=== PATIENT | male | born 1975 | race Caucasian/White ===

== ENCOUNTER 2023-03-18 16:37 | Emergency (ER) | payer BC, SELFPAY ==
[2023-03-18] VITALS (54 sets, daily range): BP systolic 140–152; BP diastolic 84–108; PULSE 73–101; RESP 15–20; TEMP 37.1–37.6; O2SAT 91–97
--- NOTE | 2023-03-18 17:50 | ED.GENADUL_ITS ---
Discharge Plan Disposition Patient Disposition: Home Discharge Details Chief Complaint: GenMedical Clinical Impression: Dehydration, Viral illness, Hiatal hernia Primary Care Provider: Raghav Klein ED Provider: Brant Norwood Home Meds and New Rx's Prescriptions: No Action ibuprofen [Motrin IB] 200 MG tablet 200 mg PO Q6H PRN Patient Comments: PT STATES TAKING 800MG 1-2X DAILY.HE hydrocodone-acetaminophen 1 TAB tablet 1 ea PO Q4H PRN PRN (Reason: Pain) Qty: 15 0RF Discharge Instructions Instructions: Hiatal Hernia (ED), Dehydration (ED), Viral Syndrome (ED) Additional Instructions: Please follow-up closely with your primary care physician. Please return to the emergency department for any worsening symptoms Referrals: Lani Redding MD [ [facility] STAFF PHYSICIAN] - (Call surgery team for follow up regarding your hiatal hernia as needed) Medical Decision Making 48-year-old male no past medical history presents with 1 week of generalized fatigue, sore throat, noticed enanthem to tongue shallow-based ulcers, recent travel to [place] to a conference, no sick contacts that he is aware of, discomfort with swallowing with sensation radiating down into chest, no shortness of breath no peripheral edema, able to tolerate food no diarrhea or constipation. Relatively nontoxic however wildly tachycardic on arrival. Consider viral illness leading to pharyngitis must consider COVID versus influenza versus RSV versus mononucleosis versus strep pharyngitis must also consider viral versus bacterial pneumonia low suspicion for ACS esophageal rupture bowel obstruction or biliary pathology. Consider tachycardia related to viral illness and dehydration. Will administer fluids antiemetics GI cocktail, screening chest x-ray flu RSV COVID swab strep swab, Monospot. 21: 22 heart rate and clinical appearance greatly improved after fluids. Labs and imaging largely unremarkable. Incidental hiatal hernia on CT chest abdomen pelvis. Home care instructions and return precautions given. Consider likely resolving viral illness and dehydration HPI General Date/Time Provider Initiated Documentation: 03/18/23 16:52 . HPI Narrative: 48-year-old male no past medical history, presents with 1 week of fatigue, sore throat, painful sensation in chest when swallowing, also noticed some inflammation to tongue and throat, recent travel to [place] to a conference, no recent sick contacts. Related Data Home Medications Medication Instructions Recorded Confirmed hydrocodone 5 mg-acetaminophen 325 1 ea PO Q4H PRN PRN Pain #15 tabs 03/31/14 mg tablet ibuprofen 200 mg tablet (Motrin IB) 200 mg PO Q6H PRN 04/08/14 Previous Rx's Medication Instructions Recorded hydrocodone 5 mg-acetaminophen 325 1 ea PO Q4H PRN PRN Pain #15 tabs 12/14 mg tablet Allergies Allergy/AdvReac Type Severity Reaction Status Date / Time No Known Allergies Allergy Unverified 03/18/23 16:54 General Stated Complaint: GenMedical MARI: 3 Review of Systems Narrative: Review of Systems Constitutional: Fatigue Eyes: negative ENT: Sore throat Cardiovascular: negative Respiratory: negative Gastrointestinal: negative : negative Musculoskeletal: negative Skin: negative Neurologic: negative Psych: negative PFSH All Active Problems (Updated 03/18/23 @ 21:26 by Brant Norwood MD) Dehydration (Acute) Viral illness (Acute) Hiatal hernia (Chronic) Surgical History (Updated 06/05/18 @ 14:35 by [facility]) Repair of inguinal hernia 2012 Social History Smoking/Tobacco Use Status: Never Smoking risk assessment performed?: Yes Alcohol Intake: never Drug use: Never Substance use type: does not use Do you feel safe at home: Yes Do you feel safe in your relationship?: Yes Exam Narrative Exam Narrative: Physical Examination General: alert, awake, cooperative, resting comfortably, no acute distress HEENT: normocephalic, atraumatic; PERRL, EOM intact, conjunctiva normal; no nasal discharge; moist mucous membranes, erythematous tonsils bilaterally, midline uvula, tolerating secretions normal voice, enanthem of tongue shallow based ulcerations Neck: supple, trachea midline; full ROM Chest: normal to inspection Respiratory: normal respiratory effort, speaking in full sentences, clear to auscultation, no wheezing, rales or rhonchi Cardiac: Tachycardia, regular rhythm, S1S2 intact, no murmurs rubs or gallops GI: abdomen soft, non-tender, non-distended; no palpable mass or hepatosplenomegaly Skin: no lesions, rashes or trauma appreciated Neuro: AAOx3, normal speech, moving all extremities Extremities: No peripheral edema Psych: Appropriate mood and affect Course Vital Signs Vital signs: Vital Signs Temperature 37.1 C 03/18/23 16:48 Pulse 101 H 03/18/23 16:48 Respiratory Rate 20 03/18/23 16:48 Blood Pressure 152/108 H 03/18/23 16:48 Pulse Oximetry 95 03/18/23 16:48 Temperature 37.1 C 03/18/23 16:48 Temperature Source Oral 03/18/23 16:48 Pulse 101 H 03/18/23 16:48 Respiratory Rate 20 03/18/23 16:48 Blood Pressure 152/108 H 03/18/23 16:48 Blood Pressure Position Sitting 03/18/23 16:48 Pulse Oximetry 95 03/18/23 16:48 Oxygen Delivery Method Room Air 03/18/23 16:48 Oxygen Flow Rate 0 03/18/23 16:48 Pain Level 2 03/18/23 16:48 Lab/Test Results Lab/Test Results: 03/18/23 17:04 Tonsil - Not Specified Group A Streptococcus Culture - Pending
[2023-03-18 18:14] LABS: Abs Immature Grans 0.05 10^3/uL (0.0-0.06); Absolute Basophil Count 0.05 10^3/uL (0.0-0.2); Absolute Eosinophil Count 0.05 10^3/uL (0.0-0.7); Absolute Lymphocyte Count 2.12 10^3/uL (1.2-3.4); Absolute Monocyte Count 0.83 10^3/uL (0.1-0.8); Absolute Neutrophil Count 6.69 10^3/uL (1.2-6.7); Basophils % 0.5; Eosinophils % 0.5; HCT 45.9 % (40.0-50.0); Immature Grans % 0.5; Lymphocytes % 21.7; MCH 28.6 pg (27.0-33.0); MCHC 32.7 % (32.0-36.0); MCV 87 fL (80-95); MPV 8.7 fL (8.0-11.0); Monocytes % 8.5; Neutrophils % 68.3; Platelet Count 237 10^3/uL (130-400); RBC 5.25 10^6/uL (4.36-5.78); RDW-SD 39.2 fL; WBC 9.79 10^3/uL (4.4-10.8)
--- NOTE | 2023-03-18 18:15 | DI.RAD_ITS ---
Exam(s) XR CHEST 2V PA LATERAL EXAM: XR CHEST 2V PA LATERAL CLINICAL HISTORY: pain with swallowing, fatigue. TECHNIQUE: 2D digital imaging was performed. COMPARISON: No exams were available for comparison FINDINGS: 2 views: Heart size is normal. The mediastinum is not widened. Lungs are clear. No infiltrates nor pleural effusions. IMPRESSION: No acute pulmonary findings. DATA REPOSITORY: RADIATION DOSE DELIVERED:
[2023-03-18] MEDS: Famotidine 20 MG/2 ML VIAL IVP (18:20)
[2023-03-18] MEDS: Ondansetron 4 MG/2 ML VIAL IVP (18:20)
[2023-03-18] MEDS: Normal Saline 1,000 ML 1000 ML IV ×2 (18:20→19:25)
[2023-03-18] MEDS: Dexamethasone 10 MG/ML VIAL IVP (18:20)
[2023-03-18 18:22] LABS: Mono Screening Negative (Negative)
[2023-03-18 18:26] LABS: COVID-19 PCR Negative (Negative); Influenza A PCR Negative (Negative); Influenza B PCR Negative (Negative); RSV PCR Negative (Negative)
[2023-03-18 18:28] LABS: ALT 55 U/L (16-63); AST 32 U/L (15-37); Albumin 3.6 g/dL (3.4-5.0); Alkaline Phosphatase 104 U/L (46-116); BUN 20 mg/dL (7-18); Bilirubin, Total 0.4 mg/dL (0.2-1.0); CREATININE 1.4 mg/dL (0.70-1.30); Calcium 9.8 mg/dL (8.5-10.1); Chloride 102 mmol/L (98-107); Estimated GFR 62.39 (mL/min/1.73m2); Glucose 110 mg/dL (74-106); Lipase 46 U/L (16-77); Potassium 3.9 mmol/L (3.5-5.1); Sodium 141 mmol/L (136-145); Total Protein 8.2 g/dL (6.4-8.2)
[2023-03-18 18:28] LABS: Source Nasopharynx
--- NOTE | 2023-03-18 18:50 | DI.VRAD_ITS ---
PROCEDURE INFORMATION: Exam: XR Chest Exam date and time: 03/18/2023 6:11 PM Age: 48 years old Clinical indication: Other: Pain with swallowing, fatigue TECHNIQUE: Imaging protocol: Radiologic exam of the chest. Views: 2 views. COMPARISON: No relevant prior studies available. FINDINGS: Lungs: Unremarkable. No consolidation. Pleural spaces: Unremarkable. No pleural effusion. No pneumothorax. Heart/Mediastinum: Unremarkable. No cardiomegaly. Bones/joints: Unremarkable. IMPRESSION: No acute findings. Dictated and Authenticated by: Edgar Alicea MD. Ordering:ALISHA Guo MD
--- NOTE | 2023-03-18 19:00 | DI.CT_ITS ---
Exam(s) CT CHEST/ABD/PEL W EXAM: CT CHEST/ABD/PEL W CLINICAL HISTORY: fatigue, painful swallowing. TECHNIQUE: Imaging Protocol: Axial computed tomography images with coronal and sagittal reformatted images were created and reviewed CONTRAST MATERIAL: Intravenous: Omnipaque 350 Contrast volume:100 ml Oral: None COMPARISON: No exams were available for comparison FINDINGS: CHEST: LUNGS: Both lungs are clear. No infiltrates nor pleural effusions. No nodules.. MEDIASTINUM: There is no hilar nor mediastinal adenopathy. Visualized thyroid unremarkable.Small hiat al hernia CARDIAC: Heart size is normal. There is no pericardial effusion.Caliber of the thoracic aorta is wit hin normal limits. OSSEOUS: No significant osseous lesions.. ABDOMEN: There is no ascites. LIVER: There are no focal hepatic lesions nor dilatation of intrahepatic ducts. GALLBLADDER/BILIARY: No obvious gallbladder pathology. CBD is not dilated. PANCREAS: No evidence of pancreatic mass nor dilatation of the pancreatic duct. SPLEEN: Spleen is not enlarged. There are no intrasplenic lesions. Splenic and portal veins are lin nt. ADRENALS: There are no significant adrenal masses. KIDNEYS: No calculi nor hydronephrosis. No solid renal masses. There is a small benign cyst in the in ferior pole of the right kidney which measures 7 x 6 mm. This does not are require further workup. ABDOMINAL AORTA: Abdominal aorta is not enlarged. LYMPH NODES: There is no retroperitoneal nor paraaortic adenopathy. ABDOMINAL WALL: There is a fat only containing umbilical hernia. No bowel loops therein. No bowel o bstruction evident. GI: There is no evidence of bowel obstruction.No free air nor free fluid. PELVIS: LYMPH NODES: There is no intrapelvic nor inguinal adenopathy. GI: No evidence of appendicitis.No evidence of sigmoid diverticulitis. URINARY BLADDER: No calculi nor masses evident REPRODUCTIVE: Prostate size no abnormal. Prostate contains calcifications. OSSEOUS: No significant osseous lesions. No fractures. Multiple small Schmorl's node invaginations evident at and above L1 level. IMPRESSION: 1. No infiltrates nor pleural effusions nor intrathoracic adenopathy. 2. Small hiatal hernia. 3. No significant acute findings in the abdomen and pelvis. RADIATION DOSE DELIVERED: 1,214.64mGy.cm Total DLP DATA REPOSITORY: All CT scans at this facility are submitted to the National Radiology Data Registry (NRDR) Dose Index Registry (DIR) with the [employer] (ACR). RADIATION OPTIMIZATION: All CT scans at this facility use at least one of these dose optimization te chniques: automated exposure control; mA and/or kV adjustment per patient size (includes targeted exa ms where dose is matched to clinical indication); or iterative reconstruction.
[2023-03-18] MEDS: Omnipaque 350 MG/ML 100 ML BTL IJ (20:32)
[2023-03-18] MEDS: Normal Saline - Diluent 50 ML VIAL IJ (20:33)
[2023-03-18] MEDS: Normal Saline Flush 10 ML SYR IVP (20:39)
--- NOTE | 2023-03-18 21:11 | DI.VRAD_ITS ---
PROCEDURE INFORMATION: Exam: CT Chest With Contrast; Diagnostic Exam date and time: 03/18/2023 8:36 PM Age: 48 years old Clinical indication: Other: Fatigue, painful swallowing; Prior surgery; Surgery date: 6+ months; Surgery type: Hernia repair TECHNIQUE: Imaging protocol: Diagnostic computed tomography of the chest with contrast. 3D rendering (Not supervised by radiologist): MIP and/or 3D reconstructed images were created by the technologist. Radiation optimization: All CT scans at this facility use at least one of these dose optimization techniques: automated exposure control; mA and/or kV adjustment per patient size (includes targeted exams where dose is matched to clinical indication); or iterative reconstruction. Contrast material: OMNIPAQUE 350; Contrast volume: 100 ml; Contrast route: INTRAVENOUS (IV); COMPARISON: CR XR CHEST 2V PA LATERAL 03/18/2023 6:11 PM FINDINGS: Lungs: Lungs are clear bilaterally. No consolidation. No edema. Trachea and bronchial tree are unremarkable. Pleural spaces: No pleural effusion. Heart: Normal heart size. No pericardial effusion. No coronary artery atherosclerotic calcium. Lymph nodes: Unremarkable. No enlarged lymph nodes. Vasculature: Thoracic aorta is unremarkable in course and caliber. Diaphragm: Small sliding hiatal hernia. No acute features. No retained material within the esophagus. No cynthia esophageal wall edema. Bones/joints: There is mild degenerative change of the thoracic spine. Soft tissues: Chest wall soft tissues are unremarkable in appearance. IMPRESSION: 1. No acute findings. 2. Lungs and pleural space are unremarkable. 3. Small sliding hiatal hernia. No acute features of edema. No retained food material. PROCEDURE INFORMATION: Exam: CT Abdomen And Pelvis With Contrast Exam date and time: 03/18/2023 8:36 PM Age: 48 years old Clinical indication: Other: Fatigue, painful swallowing; Prior surgery; Surgery date: 6+ months; Surgery type: Hernia repair TECHNIQUE: Imaging protocol: Computed tomography of the abdomen and pelvis with contrast. 3D rendering (Not supervised by radiologist): MIP and/or 3D reconstructed images were created by the technologist. Radiation optimization: All CT scans at this facility use at least one of these dose optimization techniques: automated exposure control; mA and/or kV adjustment per patient size (includes targeted exams where dose is matched to clinical indication); or iterative reconstruction. Contrast material: OMNIPAQUE 350; Contrast volume: 100 ml; Contrast route: INTRAVENOUS (IV); COMPARISON: CR XR CHEST 2V PA LATERAL 03/18/2023 6:11 PM FINDINGS: Liver: The liver is normal in size, contour and attenuation. Gallbladder and bile ducts: Normal. No calcified stones. No ductal dilation. Pancreas: The pancreas is normal in contour and attenuation. Spleen: The spleen is normal in size, contour and attenuation. Adrenal glands: The adrenal glands are normal in size and contour bilaterally. Kidneys and ureters: The kidneys bilaterally are unremarkable. Normal attenutation. No hydronephrosis. No calculi. Stomach and bowel: Gastric morphology is unremarkable. No edema. No gastric outlet obstruction. Small sliding hiatal hernia.Small bowel loops are normal in course and caliber. There is no mucosal edema or bowel wall thickening. No obstructive features.The colon contains formed fecal material. There is no bowel wall thickening. No inflammatory features. No obstruction. Appendix: A non inflamed appendix is identified on series 4, images 111 through 106. Intraperitoneal space: No free fluid. No free air. Vasculature: Unremarkable. No abdominal aortic aneurysm. Lymph nodes: Unremarkable. No enlarged lymph nodes. Urinary bladder: Unremarkable as visualized. Reproductive: [id number] prostate enlargement. Recommend clinical correlation. Bones/joints: Mild degenerative lumbar spine changes. No acute skeletal pathology. Soft tissues: Minor fat containing umbilical hernia. No acute change. IMPRESSION: No acute findings of the abdomen or pelvis. Dictated and Authenticated by: Edgar Alicea MD. Ordering:AILSHA Guo MD
[2023-03-20 11:50] LABS: Hepatitis A Antibody IgM Negative (Negative); Hepatitis B Core Antibody Negative (Negative); Hepatitis B surface Ag Negative (Negative); Hepatitis C Ab w Rflx HCV PCR Negative (Negative)
== END 2023-03-18 21:31 | disposition home or self-care (01) ==
PROVIDERS: Emergency Provider Emergency Medicine; PCP Emergency Medicine
DX: E86.0 Dehydration (principal); B34.9 Viral infection, unspecified; K44.9 Diaphragmatic hernia without obstruction or gangrene
CPT/HCPCS: 74177; 80053; 83690; 86704; 86709; 86803; 87340; 87637; 87880; 96360; 96361; 99285; 71046; 71260; 85025; 86308; 87081; 99284; J1100; J2405; J3490

== ENCOUNTER 2024-04-16 14:18 | Outpatient (REF) | payer BC, SELFPAY ==
[2024-04-16 21:57] LABS: ALT 36 U/L (16-63); AST 24 U/L (15-37); Albumin 4.6 g/dL (3.4-5.0); Alkaline Phosphatase 102 U/L (46-116); Anion Gap 8.7 mmol/L (3-11); BUN 15 mg/dL (7-18); Bilirubin, Total 0.53 mg/dL (0.2-1.0); CO2 27.3 mmol/L (21.0-32.0); CREATININE 1.3 mg/dL (0.70-1.30); Calcium 9.5 mg/dL (8.5-10.1); Calculated LDL 185 mg/dL (<100); Chloride 103 mmol/L (98-107); Cholesterol 268 mg/dL (<200); Estimated GFR 67.76 (mL/min/1.73m2); Glucose 97 mg/dL (74-106); HDL Cholesterol 50 mg/dL (40-60); Potassium 4.3 mmol/L (3.5-5.1); Sodium 139 mmol/L (136-145); Total Protein 7.8 g/dL (6.4-8.2); Triglyceride 168 mg/dL (<150)
[2024-04-16 22:01] LABS: Microalb ug/mg Crea 10.1 ug/mg Cr
[2024-04-17 23:46] LABS: Hepatitis C Ab w Rflx HCV PCR Negative (Negative)
[2024-04-18 09:20] LABS: HIV-1/2 Ag & Ab Screen Negative (Negative)
== END 2024-04-16 14:19 | disposition home or self-care (01) ==
LOC: LBN 14:18
PROVIDERS: Visit Provider Nurse Practitioner Family
DX: I10 Essential (primary) hypertension (principal); Z11.4 Encounter for screening for human immunodeficiency virus [HIV]; Z11.59 Encounter for screening for other viral diseases; Z13.220 Encounter for screening for lipoid disorders
CPT/HCPCS: 80053; 80061; 86803; 87389; 82043; 82570